=== PATIENT | female | born 1930 | race Caucasian/White ===

== ENCOUNTER 2017-05-01 06:52 | Day surgery (SDC) | payer MEDICARE, OTHER ==
[~2017-05-01] VITALS: Ht 160 cm; Wt 76.2 kg
[2017-05-01] MEDS ORDERED: SODIUM CHLORIDE 0.9% FLUSH 10 ML FLUSH IV FLUSH PRN ×2 (07:30)
[2017-05-01] MEDS ORDERED: SODIUM CHLOR 0.9% 1000 ML INJ 1,000 ML IV SCH ×2 (07:30→10:36)
[2017-05-01 08:00] VITALS: BP 159/73; PULSE 76; RESP 16; TEMP 98.1; O2SAT 95
[2017-05-01 08:07] VITALS: BP 159/73; PULSE 76; RESP 16; TEMP 98.1; O2SAT 95
[2017-05-01] MEDS ORDERED: GLIP10TA6 PO (08:07)
[2017-05-01] MEDS ORDERED: ATOR40TA16 PO (08:07)
[2017-05-01] MEDS ORDERED: CALC1TAB12 PO (08:07)
[2017-05-01] MEDS ORDERED: LEVEMIR SQ (08:07)
[2017-05-01] MEDS ORDERED: CHOL5000 PO (08:07)
[2017-05-01] MEDS ORDERED: AMLO10TA2 PO (08:07)
[2017-05-01] MEDS ORDERED: ASPI81CH CHEW (08:07)
[2017-05-01] MEDS ORDERED: ACTO15TA11 PO (08:07)
[2017-05-01] MEDS ORDERED: ALBUAER3 INH (08:07)
[2017-05-01] MEDS ORDERED: LEVO112T2 PO (08:07)
[2017-05-01] MEDS ORDERED: VITA500C18 PO (08:07)
[2017-05-01] MEDS ORDERED: LOSA100T PO (08:07)
[2017-05-01] MEDS ORDERED: HEPARIN SODIUM - IV 10,000 UNITS/10 ML VIAL ONE (08:29)
[2017-05-01] MEDS ORDERED: MIDAZOLAM HCL 5 MG/ML VIAL (1 ML) ONE (08:30)
[2017-05-01] MEDS ORDERED: PLAV75TA29 PO (10:39)
[2017-05-01] MEDS ORDERED: oxyCODONE/ACETAMINOPHEN 5 MG/325 MG TAB PO PRN (10:45)
[2017-05-01] MEDS ORDERED: ATROPINE SULFATE 1 MG/ML VIAL IV PRN (10:45)
[2017-05-01] MEDS ORDERED: TEMAZEPAM 15 MG CAP PO PRN (10:45)
[2017-05-01] MEDS ORDERED: ONDANSETRON HCL 4 MG/2 ML VIAL IV PRN (10:45)
[2017-05-01] MEDS ORDERED: LIDOCAINE HCL 1% 50 ML VIAL INFIL PRN (10:45)
[2017-05-01] MEDS ORDERED: oxyCODONE/ACETAMINOPHEN 10 MG/325 MG TAB PO PRN (10:45)
[2017-05-01] MEDS ORDERED: ACETAMINOPHEN 325 MG TAB PO PRN (10:45)
[2017-05-01] MEDS ORDERED: METOCLOPRAMIDE HCL 10 MG/2 ML VIAL IV PRN (10:45)
[2017-05-01] MEDS ORDERED: LORazepam 2 MG/ML VIAL IV PRN (10:45)
[2017-05-01] MEDS ORDERED: MORPHINE SULFATE 4 MG/ML INJ IV PUSH PRN (10:45)
[2017-05-01] MEDS ORDERED: SODIUM CHLOR 0.9% 250 ML INJ 250 ML IV PRN (10:45)
[2017-05-01] MEDS ORDERED: CLOPIDOGREL 300 MG TAB PO ONE (11:00)
[2017-05-01] MEDS ORDERED: MISC INFORMATION XX ONE (11:00)
[2017-05-01] MEDS ORDERED: BACITRACIN OINT 0.9 GM PKT TOP ONE (11:00)
[2017-05-01] MEDS ORDERED: CLOPIDOGREL 300 MG TAB ONE (11:04)
[2017-05-01] MEDS ORDERED: cloNIDine HCL 0.1 MG TAB ONE (12:07)
[2017-05-01] MEDS ORDERED: cloNIDine HCL 0.2 MG TAB PO PRN (12:30)
[2017-05-01] MEDS ORDERED: MIDAZOLAM HCL 2 MG/2 ML VIAL IV ONE ×2 (12:30)
[2017-05-01] MEDS ORDERED: HEPARIN SODIUM - IV 10,000 UNITS/10 ML VIAL IV ONE (12:30)
--- NOTE | 2017-05-01 14:28 | MA ---
cc: ROSCOEKYLER DATE: 05/01/2017 PROCEDURE PERFORMED 1. Fluoroscopy with interpretation. 2. Descending aortography. 3. Bilateral lower extremity peripheral angiography with first, second, third order visualization and interpretation. 4. Percutaneous transluminal angioplasty of the left superficial femoral artery. 5. Orbital rotational atherectomy of the right common iliac artery and balloon angioplasty of the right common iliac artery. METHOD The risks, benefits and alternatives were discussed with the patient. The patient understood and consented to the procdure. The patient was brought into the catheterization lab and placed on the catheterization table. The right groin is prepped and draped in sterile fashion. The right groin is anesthetized with 2% lidocaine. The right common femoral is cannulated and a 5-Brazilian, 11 cm sheath is placed without difficulty. DESCENDING AORTOGRAPHY Descending aortography is performed in an anterior posterior view using a 24 cc contrast injection with good opacification. Descending angiography revealed mild infrarenal descending aortic atherosclerosis, bilateral renal arteries widely patent. PERIPHERAL ANGIOGRAPHY 1. The left common, internal and external iliac arteries have minor luminal irregularities. The left common femoral and profunda arteries have moderate luminal irregularities with moderate calcium present. The left superficial femoral artery has a 95% subtotal occlusion throughout its entire course with heavy calcium present. The left popliteal is occluded. The left anterior tibial, posterior tibial and peroneal vessels are occluded. There is a small segment of the peroneal visualized via collaterals which jumps down to about the level just above the ankle. There is no visualization of good collateral flow down below into the foot. The anterior tibial and posterior tibial vessels are not visualized at all. 2. The right common iliac artery has a 75% eccentric, heavily calcified stenosis. The right external, internal and common femoral arteries have minor luminal irregularities. The right profunda artery has minor luminal irregularities. The right superficial femoral artery is occluded and recanalized via the popliteal artery. There is single-vessel runoff in the peroneal vessel down below the knee also diffusely diseased. The anterior tibial and posterior tibial are occluded. PERCUTANEOUS INTERVENTION There is very poor runoff below the knee and no obvious graftable targets. We are going to do the best we can to try to improve inflow. A 0.035 inch, 260 cm stiff angle Glidewire was navigated down into the distal superficial femoral artery. A Trailblazer catheter was advanced behind it. A 0.018 inch VAP wire was navigated down into the distal superficial femoral artery. A 4.0 x 200 mm Medtronic balloon was then advanced to the left superficial femoral artery and deployed on two sequential inflations. Repeat angiography showed much improved flow through the SFA with some improved distal collateralization below the knee. The sheath was then pulled back to the right external iliac artery and a Viper wire was navigated to the descending distal aorta. The sheath was upsized to a 7-Brazilian sheath and a 2.25 mm CSI atherectomy catheter was then prepped and advanced to the right common iliac artery and performed three sequential passes at 60,000 and 90,000 revolutions per minute sequentially. The right common iliac artery was then dilated with a 9.0 x 30 mm Medtronic balloon. Repeat angiography showed much improved angiographic appearance with KALIN-III flow. Given the good result we elected not to proceed with endovascular stenting. The sheath was then exchanged for a 7-Brazilian short sheath to be removed by manual hemostasis. Heparin was administered throughout the entire procedure to maintain appropriate anticoagulation. CONCLUSIONS 1. Severe right common iliac artery stenosis. 2. Mild infrarenal descending aortic atherosclerosis. 3. 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 4. 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 5. Successful balloon angioplasty of the left superficial femoral artery. 6. Successful balloon angioplasty with orbital rotational arthrectomy of the right common iliac artery. PLAN Obviously she has very poor runoff below the knee in both lower extremities. We tried to improve the inflow to the left lower extremity as best we can. If she has any further deterioration we can get a surgical consultation but I really do not think there is anything potentially to graft down there. Her long-term outcome for the foot is poor, although she has no open sores now. The right superficial femoral artery is potentially approachable although there is only single-vessel runoff below the knee on the right. We may have to see how she does and consider staged intervention and open up that right SFA to improve inflow below the knee. Again, down by the ankle and the foot there is very poor runoff. Will initiate Plavix and continue aggressive medical therapy. MD NATIVIDAD Lezama/CHRISTIANO /10:43 AM /2:13 PM
[2017-05-02] MEDS ORDERED: CLOPIDOGREL 75 MG TAB PO SCH (09:00)
[2017-05-02] MEDS ORDERED: ASPIRIN 81 MG CHEW TAB PO SCH (09:00)
== END 2017-05-01 20:08 | disposition home or self-care (01) ==
LOC: HDOC 06:52 → HDIC 06:53 → HDOC 20:08
PROVIDERS: ATTEND Internal Medicine
DX: I70.203 Unspecified atherosclerosis of native arteries of extremities, bilateral legs (principal); I70.92 Chronic total occlusion of artery of the extremities; I70.0 Atherosclerosis of aorta; I10 Essential (primary) hypertension; E78.5 Hyperlipidemia, unspecified; E11.51 Type 2 diabetes mellitus with diabetic peripheral angiopathy without gangrene
CPT/HCPCS: 37224; 37225; 75625; 75716; 82948; 85347; 86850; 86900; 86901; C1725; C1769; C1876; C1887; C1893; J1644; J2250; J3010